=== PATIENT | male | born 1955 | race Caucasian/White ===

== ENCOUNTER → 2020-05-17 | Day surgery (SDC) | payer BC ==
[~2020-05-17] MED LIST: Ketamine 200 MG/20 ML MDV IV ONE; Lactated Ringers 1,000 ML IV SCH; Phenylephrine 1% 10 MG/ML SDV IV ONE; Propofol 200 MG/20 ML SDV IV ONE; fentaNYL 100 MCG/2 ML SDV IV ONE
--- NOTE | 2020-05-17 19:06 | OR ---
DATE OF OPERATION: 05/17/2020 PREOPERATIVE DIAGNOSIS: ALTERED BOWEL HABITS. POSTOPERATIVE DIAGNOSIS: ALTERED BOWEL HABITS. SURGEON: Theron Duran MD PROCEDURE: DIAGNOSTIC COLONOSCOPY WITH POLYP REMOVAL X8. ANESTHESIA: MAC. COMPLICATIONS: None. SPECIMEN: Eight polyps, combination of tubular adenomas and villous lesions, see reports. FINDINGS: 1. Full-length colonoscopy. 2. Valf-bt-[id number] distal sigmoid and rectosigmoid diverticulosis. 3. Eight separate polyps. RECOMMENDATIONS: Followup colonoscopy in 1 year. INDICATIONS: The patient presented with altered bowel habits in the form of significant constipation, change in stool caliber. We recommended diagnostic colonoscopy, as patient has never had a scope in his past. DESCRIPTION OF PROCEDURE: The patient was prepped and draped, placed in the left lateral decubitus position. A lubricated Olympus colonoscope was inserted and with relative ease advanced to the cecum. Direct visualization of the ileocecal valve and appendiceal orifice was accomplished. The bowel prep was fine. Upon withdrawal of the scope, the cecum and ascending colon appeared benign. At the hepatic flexure, the patient had a small sessile polyp removed in its entirety with forceps biopsy x1. In the proximal transverse colon, he had a second small sessile polyp also removed with a forceps. The splenic flexure had 2 separate polyps. One was small and flat, removed easily with forceps biopsy x2. The second was an approximately 6 to 7 mm villous lesion removed with a snare and suctioned into polyp trap #1. The descending colon appeared unremarkable. The sigmoid colon had scattered diverticula, significant at its most distal portion, and in the rectosigmoid junction at around 40 cm, the patient had another larger villous lesion just shy of a cm, was removed with a snare in 2 separate sections without any complication and suctioned into polyp trap #2. At the rectosigmoid junction, the patient had a small little cluster of hyperplastic-appearing polyps removed, 3 of those with forceps without any complication. There were some that, once we insufflated, were even difficult to see. The rectal vault itself appeared benign. He had prominent internal hemorrhoids on retroflexion. No other lesions. Air was suctioned. The scope was removed without complication. DORA/KIP /[id number]
== END ==
LOC: CC.SDS 07:05
PROVIDERS: ATTEND Family Medicine
DX: D12.3 Benign neoplasm of transverse colon (principal); D12.5 Benign neoplasm of sigmoid colon; K57.30 Diverticulosis of large intestine without perforation or abscess without bleeding; K59.00 Constipation, unspecified; K64.8 Other hemorrhoids; I10 Essential (primary) hypertension; F32.9 Major depressive disorder, single episode, unspecified; E11.9 Type 2 diabetes mellitus without complications; K21.9 Gastro-esophageal reflux disease without esophagitis; E78.00 Pure hypercholesterolemia, unspecified; F17.200 Nicotine dependence, unspecified, uncomplicated; G47.33 Obstructive sleep apnea (adult) (pediatric); Z88.8 Allergy status to other drugs, medicaments and biological substances; Z79.82 Long term (current) use of aspirin; Z79.899 Other long term (current) drug therapy
CPT/HCPCS: 00811; J2370; J2704; J3010; J7120

== ENCOUNTER → 2021-07-04 | Day surgery (SDC) | payer BC ==
[~2021-07-04] MED LIST changes: -Ketamine 200 MG/20 ML MDV IV ONE; -Lactated Ringers 1,000 ML IV SCH; -Phenylephrine 1% 10 MG/ML SDV IV ONE; -Propofol 200 MG/20 ML SDV IV ONE; +Propofol 200 MG/20 ML SDV ONE; -fentaNYL 100 MCG/2 ML SDV IV ONE
[2021-07-04] MEDS: Lactated Ringers 1,000 ML IV SCH (08:07)
--- NOTE | 2021-07-04 10:52 | OR ---
DATE OF OPERATION: 07/04/2021 PREOPERATIVE DIAGNOSIS: HISTORY OF POLYPS. POSTOPERATIVE DIAGNOSIS: HISTORY OF POLYPS. SURGEON: Theron Duran MD PROCEDURE: FULL-LENGTH COLONOSCOPY WITH SNARE POLYPECTOMY X2. ANESTHESIA: MAC. COMPLICATIONS: None. SPECIMEN: Two small tubular adenomas, each approximately 4 to 5 mm. FINDINGS: 1. Full-length diagnostic colonoscopy. 2. Moderate sigmoid diverticulosis. 3. Tubular adenomas x2. RECOMMENDATIONS: Followup colonoscopy in 3 years. INDICATIONS: The patient had a colonoscopy last year. He had kind of a marginal prep. We took off 8 polyps. We recommended a 1-year followup. DESCRIPTION OF PROCEDURE: The patient is prepped and draped, placed in the left lateral decubitus position. A lubricated Olympus colonoscope was inserted and with relative ease advanced to the cecum. The patient is very tortuous in the sigmoid colon, but scope passed safely and easily. The bowel prep was excellent. Upon withdrawal of the scope, the cecum and the proximal ascending colon were unremarkable. Tucked deep behind the haustral fold patient had a small 4 to 5 mm tubular adenoma removed with a snare and suctioned into polyp trap #1. The rest of the ascending and transverse colons were unremarkable. Right at the splenic flexure, patient had a 2nd tubular adenoma, also about 5 mm and removed with a snare and suctioned into polyp trap #2. The descending colon was unremarkable. In the mid sigmoid colon, through to the rectosigmoid junction patient had moderate diverticular disease. No other polyps, masses, ulceration, or bleeding sites were seen. The rectal vault appeared benign. Retroflexion of the scope in the rectum showed no anal lesions. Air was suctioned, scope removed without complication. DORA/KIP /[id number]
== END ==
LOC: CC.SDS 07:57
PROVIDERS: ATTEND Family Medicine
DX: Z12.11 Encounter for screening for malignant neoplasm of colon (principal); D12.3 Benign neoplasm of transverse colon; D12.2 Benign neoplasm of ascending colon; K57.30 Diverticulosis of large intestine without perforation or abscess without bleeding; I10 Essential (primary) hypertension; N40.0 Benign prostatic hyperplasia without lower urinary tract symptoms; E11.9 Type 2 diabetes mellitus without complications; K21.9 Gastro-esophageal reflux disease without esophagitis; E78.00 Pure hypercholesterolemia, unspecified; G47.33 Obstructive sleep apnea (adult) (pediatric); F32.A Depression, unspecified; Z88.8 Allergy status to other drugs, medicaments and biological substances; Z79.899 Other long term (current) drug therapy; Z79.82 Long term (current) use of aspirin; Z79.84 Long term (current) use of oral hypoglycemic drugs; Z90.49 Acquired absence of other specified parts of digestive tract; Z98.890 Other specified postprocedural states; Z87.891 Personal history of nicotine dependence
CPT/HCPCS: J2704; J7120

== ENCOUNTER 2023-01-20 21:51 | Emergency (ER) | payer MEDICARE, BC ==
[2023-01-20 22:33] VITALS: BP 164/141; PULSE 73
[2023-01-20] MEDS: Morphine 2 MG/ML SYRINGE SUBCUT STA (23:35)
[2023-01-20] MEDS: Diphtheria/Tetanus Toxoids,Adult (Td) 0.5 ML SDV IM ONE (23:38)
[2023-01-21] MEDS: Take Home: Acetaminophen/HYDROcodone 325-5 MG, 2 Tab Pack PO ONE (00:05)
== END 2023-01-21 00:10 | disposition home or self-care (01) ==
LOC: CC.ED 21:51 → SUPCPDRO 21:51 → CC.ED 01-21 00:10
DX: S63.502A Unspecified sprain of left wrist, initial encounter (principal); S00.12XA Contusion of left eyelid and periocular area, initial encounter; S09.90XA Unspecified injury of head, initial encounter; S60.512A Abrasion of left hand, initial encounter; S80.212A Abrasion, left knee, initial encounter; E78.00 Pure hypercholesterolemia, unspecified; I10 Essential (primary) hypertension; E11.9 Type 2 diabetes mellitus without complications; Z87.891 Personal history of nicotine dependence; Z23 Encounter for immunization; Z88.8 Allergy status to other drugs, medicaments and biological substances; Z88.6 Allergy status to analgesic agent; Z79.82 Long term (current) use of aspirin; Z79.899 Other long term (current) drug therapy; Z79.84 Long term (current) use of oral hypoglycemic drugs; W22.8XXA Striking against or struck by other objects, initial encounter
CPT/HCPCS: 73130-LT; 90471; 90714; 96372; 99283-25; A9270-GY; J2270

== ENCOUNTER 2024-09-01 07:12 | Day surgery (SDC) | payer MEDICARE, BC ==
[2024-09-01] MEDS: Lactated Ringers 1,000 ML IV SCH (07:25)
[2024-09-01] MEDS ORDERED: Ketamine 200 MG/20 ML MDV ONE (07:46)
[2024-09-01] MEDS ORDERED: Propofol 200 MG/20 ML SDV ONE (07:46)
[2024-09-01] MEDS ORDERED: fentaNYL 50 MCG/ML SDV ONE (07:46)
[2024-09-01] MEDS ORDERED: Midazolam 1 MG/ML 2 ML SDV ONE (07:46)
== END 2024-09-01 09:14 | disposition home or self-care (01) ==
LOC: CC.SDS 07:12
PROVIDERS: ATTEND Family Medicine
DX: Z12.11 Encounter for screening for malignant neoplasm of colon (principal); D12.3 Benign neoplasm of transverse colon; K57.30 Diverticulosis of large intestine without perforation or abscess without bleeding; I10 Essential (primary) hypertension; E11.9 Type 2 diabetes mellitus without complications; K21.9 Gastro-esophageal reflux disease without esophagitis; E78.00 Pure hypercholesterolemia, unspecified; F32.A Depression, unspecified; C61 Malignant neoplasm of prostate; Z79.84 Long term (current) use of oral hypoglycemic drugs; Z79.85 Long-term (current) use of injectable non-insulin antidiabetic drugs; Z79.82 Long term (current) use of aspirin; Z79.899 Other long term (current) drug therapy; Z86.0100 Personal history of colon polyps, unspecified
CPT/HCPCS: 88305; J2250; J2704; J3010; J3490; J7120